=== PATIENT | female | born 1975 | race Caucasian/White ===

== ENCOUNTER 2020-03-23 06:05 | Day surgery (SDC) | payer MEDICAID ==
[2020-03-18 12:30] LABS: BASOPHILS % (AUTO) 0.3 % (0-1); EOSINOPHILS # (AUTO) 0.2 X10'3 (0-0.9); EOSINOPHILS % (AUTO) 2.1 % (0-6); HEMATOCRIT 41.3 % (35.0-45.0); HEMOGLOBIN 14.3 g/dl (12.0-16.0); LYMPHOCYTES # (AUTO) 2.5 X10'3 (1.1-4.8); MEAN CORPUSCULAR HEMOGLOBIN 32.8 PG (27.0-31.0); MEAN CORPUSCULAR HGB CONC 34.6 g/dL (33.0-36.5); MEAN CORPUSCULAR VOLUME 94.8 FL (78-98); MEAN PLATELET VOLUME 7.7 FL (7.4-10.4); MONOCYTES # (AUTO) 0.4 X10'3 (0-0.9); MONOCYTES % (AUTO) 4.9 % (2-12); NEUTROPHILS # (AUTO) 4.1 X10'3 (1.8-7.7); NEUTROPHILS % (AUTO) 57.7 % (42-75); PLATELET COUNT 293 X10'3 (140-440); RED BLOOD COUNT 4.36 X10'6 (4.20-5.60); RED CELL DISTRIBUTION WIDTH 13.9 % (11.5-14.5); WHITE BLOOD COUNT 7.2 X10'3 (4.5-11.0)
[2020-03-18 12:43] LABS: PARTIAL THROMBOPLASTIN TIME 27 SECONDS (22-32)
[2020-03-18 12:48] LABS: ALANINE AMINOTRANSFERASE 51 U/L (12-78); ALBUMIN 3.3 G/DL (3.4-5.0); ALBUMIN/GLOBULIN RATIO 0.9 (1.1-1.5); ALKALINE PHOSPHATASE 92 IU/L (46-116); ANION GAP 10 (8-16); ASPARTATE AMINO TRANSFERASE 27 U/L (10-37); BILIRUBIN,TOTAL 0.3 MG/DL (0.1-1.0); BLOOD UREA NITROGEN 7 MG/DL (7-18); BUN/CREATININE RATIO 6.8 (6.6-38.0); CALCIUM 8.8 MG/DL (8.5-10.1); CHLORIDE 105 MMOL/L (99-107); CREATININE 1.03 MG/DL (0.40-0.90); GLUCOSE 161 MG/DL (70-104); SODIUM 139 MMOL/L (135-145); TOTAL CARBON DIOXIDE 24.3 MMOL/L (24-32); TOTAL PROTEIN 6.8 G/DL (6.4-8.2); eGFR 58 ML/MIN
[2020-03-23] VITALS (12 sets, daily range): BP systolic 115–160; BP diastolic 66–101
[~2020-03-23] VITALS: Ht 170.2 cm; Wt 155.3 kg
[2020-03-23] MEDS ORDERED: diphenhydrAMINE 25mg capsule PO PRN (06:25)
[2020-03-23] MEDS ORDERED: normal saline 1,000 ML IV SCH (06:25)
[2020-03-23] MEDS ORDERED: nitroGLYCERIN 0.4mg SUBLingual tab SL PRN (06:25)
[2020-03-23] MEDS ORDERED: LORazepam 0.5 MG tablet PO PRN (06:25)
[2020-03-23] MEDS ORDERED: CLON-527 PO (07:04)
[2020-03-23] MEDS ORDERED: LEVO25TA49 PO (07:04)
[2020-03-23] MEDS ORDERED: TRAZ300T2 PO (07:04)
[2020-03-23] MEDS ORDERED: GABA100C PO (07:04)
[2020-03-23] MEDS ORDERED: BUPR75TA8 PO (07:04)
[2020-03-23] MEDS ORDERED: LAMO150T2 PO (07:04)
[2020-03-23 07:58] LABS: TROPONIN I < 0.04 NG/ML (0.0-0.05)
[2020-03-23] MEDS ORDERED: fentaNYL/PF 50MCG/1 ML 2ML syringe ONE ×2 (08:38→09:28)
[2020-03-23] MEDS ORDERED: iohexol 350MG/ML 100ml bottle IV ONE (08:38)
[2020-03-23] MEDS ORDERED: iohexol 350 MG/ML 50ML vial IV ONE (08:38)
[2020-03-23] MEDS ORDERED: LIDOcaine 1% (10mg/ml)w/preservative injection 20ml MDV ONE (08:38)
[2020-03-23] MEDS ORDERED: midazolam 2 mg/2 ml injection ONE ×3 (08:38→09:28)
[2020-03-23] MEDS ORDERED: LIDOcaine 1%/PF 5ML 10 MG/ML VIAL ONE (09:45)
[2020-03-23] MEDS ORDERED: HYDROcodone/acetaminophen 5mg/325mg tablet PO PRN (10:40)
[2020-03-23] MEDS ORDERED: ondansetron/PF 4mg/2ml inj IV PRN (10:40)
[2020-03-23] MEDS ORDERED: acetaminophen 325mg tablet PO PRN (10:40)
[2020-03-23] MEDS ORDERED: HYDROcodone/acetaminophen 10/325mg tab PO PRN (10:40)
[2020-03-23] MEDS ORDERED: proCHLORperazine 10 MG/2 ml inj IV PRN (10:40)
[2020-03-23] MEDS ORDERED: HYDROmorphone 1 mg/ml syringe IV PRN (10:40)
[2020-03-23] MEDS ORDERED: OXAZEpam 15mg capsule PO PRN (10:40)
== END 2020-03-23 17:00 | disposition home or self-care (01) ==
LOC: SSTAY O 06:05
PROVIDERS: ATTEND Internal Medicine Cardiovascular Disease
DX: R94.39 Abnormal result of other cardiovascular function study (principal); R07.89 Other chest pain; M54.5 Low back pain; M54.2 Cervicalgia; F40.00 Agoraphobia, unspecified; F32.9 Major depressive disorder, single episode, unspecified; F12.90 Cannabis use, unspecified, uncomplicated; K21.9 Gastro-esophageal reflux disease without esophagitis; G47.33 Obstructive sleep apnea (adult) (pediatric); E78.5 Hyperlipidemia, unspecified; Z79.899 Other long term (current) drug therapy; Z87.891 Personal history of nicotine dependence; R06.02 Shortness of breath
CPT/HCPCS: 36415; 71046; 72050; 80053; 83880; 84484; 85025; 85610; 85730; 93458; 99152; 99153; C1769; C1894; J1170; J1644; J2001; J2250; J3010; J7030; Q0163; Q9967; A6258

== ENCOUNTER 2024-11-06 15:48 | Outpatient (CLI) | payer MEDICAID ==
[~2024-11-06] VITALS: Ht 170.2 cm; Wt 112.9 kg
[~2024-11-06 15:48] MED LIST: BUPR300T53 PO; BUPR75TA8 PO; CLON-527 PO; CYMBALTA PO; GABA100C PO; LAMO150T2 PO; LAMO200T2 PO; LEVO25TA49 PO; TRAZ-256 PO; TRAZ300T2 PO; ZIPR40CA45 PO
[2024-11-06] MEDS: albuterol 2.5 MG/3 ML nebule NEB ONE (16:11)
[2024-11-06 16:15] VITALS: PULSE 106; RESP 16; O2SAT 96
[2024-11-06 16:26] VITALS: PULSE 126; RESP 16
== END 2024-11-06 23:59 | disposition home or self-care (01) ==
LOC: RT 15:48
PROVIDERS: ATTEND Family Medicine
DX: R05.3 Chronic cough (principal)
CPT/HCPCS: 94060; 94729; 94760